=== PATIENT | female | born 1960 | race Two or more races ===

== ENCOUNTER 2022-06-10 07:03 | Outpatient (CLI) | payer OTHER | END 2022-06-10 07:34 | disposition home or self-care (01) | LOC: LAB 07:03 | PROVIDERS: ATTEND Obstetrics & Gynecology Gynecologic Oncology | DX: D64.9 Anemia, unspecified (principal); Z01.818 Encounter for other preprocedural examination; Z20.822 Contact with and (suspected) exposure to COVID-19; I10 Essential (primary) hypertension; R79.1 Abnormal coagulation profile; N83.292 Other ovarian cyst, left side ==

== ENCOUNTER 2022-07-08 07:04 | Day surgery (SDC) | payer OTHER ==
[~2022-07-08] VITALS: Ht 162.6 cm; Wt 75.7 kg
[~2022-07-08 07:04] MED LIST: CRESTOR20 MG PO; GABAPEN PO; ZETIA10 MG PO; ZYRTEC10 M3 PO
== END 2022-07-08 16:50 | disposition home or self-care (01) ==
LOC: CIR.AMB 07:04
PROVIDERS: ATTEND Obstetrics & Gynecology Gynecologic Oncology
DX: D27.1 Benign neoplasm of left ovary (principal); N94.89 Other specified conditions associated with female genital organs and menstrual cycle; N83.8 Other noninflammatory disorders of ovary, fallopian tube and broad ligament; E78.00 Pure hypercholesterolemia, unspecified; R73.03 Prediabetes; Z20.822 Contact with and (suspected) exposure to COVID-19